=== PATIENT | female | born 2000 | race Caucasian/White ===

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

== ENCOUNTER 2021-05-18 15:51 | Emergency (ER) | payer MEDICAID, SELFPAY ==
[2021-05-18 16:00] VITALS: BP 128/64; PULSE 94; RESP 18; TEMP 36.9; O2SAT 99
--- NOTE | 2021-05-18 18:23 | ED.URI ---
HPI - URI/Sore Throat General Chief Complaint: Upper Respiratory Infection Stated Complaint: fever cough runny nose Source: patient and RN notes reviewed History of Present Illness HPI Narrative: This is a 20-year-old female who presented to urgent care with complaints of headache, productive cough with white clear sputum, sore throat, postnasal drip, decreased appetite and fatigue with nausea and fever. Patient notes that she took Tylenol at home and that she had a low-grade fever of 99.9. The patient denies SOB, CP, palpitation, extremity numbness, lightheadedness, dizziness, constipation, diarrhea, chills, or fever. Related Data Allergies Allergy/AdvReac Type Severity Reaction Status Date / Time acetaminophen AdvReac Mild Other Verified 05/18/21 17:33 aspirin AdvReac Mild Other Verified 05/18/21 17:33 Review of Systems Review of Systems: A 14 organ system Review of Systems was performed and pertinent positives included in the HPI, otherwise remaining ROS is negative. [facility] Surgical History Surgical History Hx of tonsillectomy Family History Family History Grandparent Diabetes mellitus, Onset Age: 50 Cerebrovascular accident, Onset Age: 50 Father Family history of migraine headaches Multiple sclerosis Hypertension Social History Social History Smoking status: Never smoker Alcohol intake: never Exam Narrative: GENERAL: This is a well-nourished, well-developed patient, in no apparent distress. HEAD: normocephalic, atraumatic. EYES: PERRL. Sclera clear/white. Vision is grossly intact. EARS: External ears normal, auditory canals clear and without drainage, TMs normal without perforation. Hearing grossly intact. NOSE: External nose normal with no obvious nasal discharge, nares without redness, no rhinorrhea. THROAT: Mucous membranes moist, posterior pharynx clear. NECK: Neck supple, non-tender without lymphadenopathy, masses or thyromegaly. CARDIOVASCULAR: Regular rate and rhythm without murmurs, gallops, or rubs. RESPIRATORY: Clear to auscultation. Breath sounds equal bilaterally. No wheezes, rales, or rhonchi. GASTROINTESTINAL: Abdomen soft, non-tender, nondistended. Bowel sounds are active. No hepato-splenomegaly, or palpable masses. No guarding. SKIN: warm, intact with no suspicious lesions or rash, good texture and turgor. NEURO: awake, alert, and oriented to person, place and time. There were no obvious focal neurologic abnormalities. Steady gait EXTREMITIES: Normal range of motion. No edema. No calf tenderness. Negative Homans sign bilaterally. BACK: Nontender without deformity or crepitance. No flank tenderness. Course Course Emergency Course: Patient will be given Zofran along with Flonase Claritin and Tessalon Perles. Treated for viral infection Vital Signs Vital signs: Vital Signs Temperature 98.5 F 05/18/21 16:00 Pulse Rate 94 05/18/21 16:00 Respiratory Rate 18 05/18/21 16:00 Blood Pressure 128/64 05/18/21 16:00 Pulse Oximetry 99 05/18/21 16:00 Temperature 98.5 F 05/18/21 16:00 Pulse Rate 94 05/18/21 16:00 Respiratory Rate 18 05/18/21 16:00 Blood Pressure 128/64 05/18/21 16:00 Pulse Oximetry 99 05/18/21 16:00 MDM - URI/Sore Throat Differential Diagnosis Differential diagnosis: Likely upper respiratory infection, sinusitis, viral infection, influenza and pharyngitis Lab Data Labs: Influenza A Screen Negative Reference Range: Negative Influenza B Screen Negative Reference Range: Negative Discharge Plan Discharge Clinical Impression: Viral infection Patient Disposition: Home, Self-Care Condition: Stable Instructions: Antibiotic Form
== END 2021-05-18 18:35 | disposition home or self-care (01) ==
PROVIDERS: Emergency Provider Nurse Practitioner; PCP Family Medicine
DX: B34.9 Viral infection, unspecified (principal); Z20.822 Contact with and (suspected) exposure to COVID-19
CPT/HCPCS: 87804; 99213; G0463

== ENCOUNTER 2022-03-27 11:51 | Emergency (ER) | payer OTHER, MEDICAID, SELFPAY ==
--- NOTE | ~2022-03-27 | XR_ITS ---
XR finger 1st RT min 2V DATE: 03/27/2022 12:34 INDICATION: Slammed thumb in mental door TECHNIQUE: 3 views COMPARISON: None FINDINGS: No fracture or dislocation, periosteal reaction or bone destruction. No radiopaque soft tis solo foreign body or subcutaneous emphysema. Joint spaces are preserved. IMPRESSION: Negative Reviewed, dictated and finalized at location A. IMPRESSION: Negative
[2022-03-27 12:00] VITALS: BP 117/69; PULSE 67; RESP 14; TEMP 36.9; O2SAT 100
--- NOTE | 2022-03-27 12:27 | ED.GENADULT ---
HPI - General Adult General Chief complaint: Extremity Injury, Upper Stated complaint: Right Thumb Injury Source: patient Mode of arrival: ambulatory Limitations: no limitations History of Present Illness HPI narrative: Patient presents for evaluation of right thumb pain. She works at [employer] and got her hand slammed in a metal door while working today. She reports 6/10 pain at rest and 8/10 pain with palpation of the affected area. No loss of range of motion. No paresthesias. She is right-hand dominant. No additional complaints or concerns. Related Data Allergies Allergy/AdvReac Type Severity Reaction Status Date / Time acetaminophen AdvReac Mild Other Verified 03/27/22 12:29 aspirin AdvReac Mild Other Verified 03/27/22 12:29 Review of Systems Review of Systems: CONSTITUTIONAL: Denies fever, chills, or sweats. EYES: Denies visual changes, redness, or discharge. ENT: Denies rhinorrhea, congestion, sore throat, or otalgia. CARDIOVASCULAR: Denies chest pain, palpitations, or edema. RESPIRATORY: Denies cough or dyspnea. GASTROINTESTINAL: Denies abdominal pain, nausea, vomiting, or diarrhea. GENITOURINARY: Denies dysuria or hematuria. SKIN: Denies rash or itching. MUSCULOSKELETAL: Reports pain in the right thumb without loss of range of motion NEUROLOGIC: Denies headache, numbness, dizziness, or weakness. PSYCHIATRIC: Denies anxiety or depression. [facility] Past Medical History Medical History Anxiety Surgical History Surgical History Hx of tonsillectomy Family History Family History Grandparent Diabetes mellitus, Onset Age: 50 Cerebrovascular accident, Onset Age: 50 Father Family history of migraine headaches Multiple sclerosis Hypertension Social History Social History Smoking status: Never smoker Alcohol intake: never Substance use: never Additional occupation/education comments: Works in [employer] at [employer] Gender identity (if verbalized by the patient): Female Spiritual care concerns: No Exam Narrative: GENERAL: Well-appearing, well-nourished, and in no acute distress. HEAD: Normocephalic, atraumatic. EYES: PERRLA and EOMI. ENT: Nares clear, no rhinorrhea or epistaxis. Mucous membranes moist. Oropharynx without tonsillar hypertrophy exudate or other lesions. Bilateral TMs pearly talbert nonbulging NECK: Supple. No adenopathy or masses. No carotid bruits or JVD CHEST: Clear to auscultation. No respiratory distress. No wheezes rales or rhonchi HEART: Regular rate and rhythm. No murmur heard. Normal peripheral pulses. ABDOMEN: Soft, nontender, nondistended, normal active bowel sounds. EXTREMITIES: Tenderness over interphalangeal joint and distal phalanx of the right thumb SKIN: Warm, dry, no rash. There is a subungual hematoma noted to the right thumb NEURO: No focal deficits. Alert and oriented x3. PSYCH: Normal mood and affect. Course Course Emergency Course: This is a 21-year-old female that presented for evaluation of an injury to the right thumb. X-ray negative for fracture. She had evidence of upper subungual hematoma. This was drained per her request. She should follow up outpatient for further evaluation and treatment including the ER for worsening symptoms. Patient is in agreement with plan of care. Level of Care: Express Care Visit Vital Signs Vital signs: Vital Signs Temperature 36.9 C 03/27/22 12:00 Pulse Rate 67 03/27/22 12:00 Respiratory Rate 14 03/27/22 12:00 Blood Pressure 117/69 03/27/22 12:00 Pulse Oximetry 100 03/27/22 12:00 Oxygen Delivery Room Air 03/27/22 12:00 Temperature 36.9 C 03/27/22 12:00 Pulse Rate 67 03/27/22 12:00 Respiratory Rate 14 03/27/22 12:00 Blood Pressure 1
== END 2022-03-27 13:18 | disposition home or self-care (01) ==
PROVIDERS: Emergency Provider Nurse Practitioner; PCP Family Medicine
DX: S60.111A Contusion of right thumb with damage to nail, initial encounter (principal); X58.XXXA Exposure to other specified factors, initial encounter; Y99.0 Civilian activity done for income or pay; F41.9 Anxiety disorder, unspecified
CPT/HCPCS: 11740; 73140; 99213; G0463

== ENCOUNTER 2023-01-07 18:40 | Emergency (ER) | payer BC, SELFPAY ==
[2023-01-07 18:45] VITALS: BP 119/58; PULSE 83; RESP 18; TEMP 36.8; O2SAT 100
[2023-01-07 18:56] VITALS: BP 119/58; PULSE 83; RESP 18; TEMP 36.8; O2SAT 100
--- NOTE | 2023-01-07 18:57 | ED.FEMALEGU ---
HPI - Female Genitourinary General Chief complaint: Urogenital-Female Stated complaint: Poss Uti Time Seen by Provider: 01/07/23 18:57 Source: patient and RN notes reviewed Mode of arrival: ambulatory Limitations: no limitations History of Present Illness HPI Narrative: 22-year-old female presents with concern for urinary tract infection. She reports 2 day history of dysuria, frequency, urgency, suprapubic pressure, abdominal discomfort she reports history of urinary tract infections. She reports when she voids it is small amounts and smells foul. She denies back pain, fever. Reports body aches and nausea. Patient took azo this afternoon MD elicited complaint: UTI Related Data Allergies Allergy/AdvReac Type Severity Reaction Status Date / Time acetaminophen AdvReac Mild Other Verified 01/07/23 18:56 aspirin AdvReac Mild Other Verified 01/07/23 18:56 Review of Systems Review of Systems: CONSTITUTIONAL: Denies malaise, chills, sweats, or fever. CARDIOVASCULAR: Denies chest pain, palpitations, or edema. RESPIRATORY: Denies cough or dyspnea. GASTROINTESTINAL: Denies abdominal pain, diarrhea. Reports nausea with 1 episode of vomiting GENITOURINARY: Reports dysuria, frequency, urgency, suprapubic pressure. Denies flank pain or hematuria. SKIN: Denies rash or itching. MUSCULOSKELETAL: Denies back pain. Reports myalgia. All systems reviewed & are unremarkable except as noted in HPI and below PMFSH Past Medical History Medical History Anxiety Surgical History Surgical History Hx of tonsillectomy Family History Family History Grandparent Diabetes mellitus, Onset Age: 50 Cerebrovascular accident, Onset Age: 50 Father Family history of migraine headaches Multiple sclerosis Hypertension Social History Social History Smoking status: Never smoker Alcohol intake: never Substance use: never Additional occupation/education comments: Works in [employer] at [employer] Gender identity (if verbalized by the patient): Female Spiritual care concerns: No Comments At time of signature, agree with nursing past medical, surgical, social and family history. There is no relevant family history pertinent to the presenting complaint Exam Narrative: GENERAL: Well-appearing, well-nourished, and in no acute distress. HEAD: Normocephalic. EYES: PERRLA, conjunctivae clear. NECK: Supple. No lymphadenopathy CHEST: Clear to auscultation. No respiratory distress. HEART: Regular rate and rhythm. ABDOMEN: Soft, suprapubic tenderness, nondistended, normal active bowel sounds, no palpable or pulsatile masses, no guarding. No CVA tenderness SKIN: Warm, dry, no rash. NEURO: Alert and oriented x3. PSYCH: Normal mood and affect Course Course Emergency Course: Patient is aware of diagnosis, understands and agrees to treatment plan. Anticipatory guidance given. Patient agrees to follow-up as directed and is aware of reasons to seek care at the emergency department. Portions of this record may have been created with voice recognition software Level of Care: Express Care Visit Vital Signs Vital signs: Vital Signs Temperature 98.3 F 01/07/23 18:45 Pulse Rate 83 01/07/23 18:45 Respiratory Rate 18 01/07/23 18:45 Blood Pressure 119/58 L 01/07/23 18:45 Pulse Oximetry 100 01/07/23 18:45 Oxygen Delivery Room Air 01/07/23 18:45 Temperature 98.3 F 01/07/23 18:56 Pulse Rate 83 01/07/23 18:56 Respiratory Rate 18 01/07/23 18:56 Blood Pressure 119/58 L 01/07/23 18:56 Pulse Oximetry 100 01/07/23 18:56 Oxygen Delivery Room Air 01/07/23 18:56 Reviewed. MDM - Female Genitourinary MDM Narrative Medical decision making narrative: Ex
== END 2023-01-07 19:14 | disposition home or self-care (01) ==
PROVIDERS: Emergency Provider Nurse Practitioner
DX: N39.0 Urinary tract infection, site not specified (principal); B96.20 Unspecified Escherichia coli [E. coli] as the cause of diseases classified elsewhere; F41.9 Anxiety disorder, unspecified
CPT/HCPCS: 81003; 87077; 87086; 87186; 99213; G0463

== ENCOUNTER 2023-04-25 13:39 | Outpatient (CLI) | payer OTHER, SELFPAY ==
[2023-04-25 19:27] LABS: Hematocrit 40.7 % (37.0-47.0); Hemoglobin 13.1 g/dL (12.0-15.0); Mean Corpuscular HGB Conc 32.2 g/dl (32-36); Mean Corpuscular Hemoglobin 30.5 pg (26-34); Mean Corpuscular Volume 94.9 fl (80-100); Mean Platelet Volume 9.1 fl (7.4-10.4); Platelet Count Result 329 k/mm3 (150-375); Red Blood Count 4.29 M/mm3 (4.2-5.4); Red Cell Distribution Width 13.2 % (11.5-14.5)
[2023-04-25 21:15] LABS: Alanine Aminotransferase 13 U/L (6-35); Albumin Level 4.7 g/dL (3.5-5.1); Alkaline Phosphatase 51 U/L (38-126); Anion Gap 10 mmol/L (8-16); Aspartate Amino Transferase 36 U/L (14-36); Bilirubin,Total 0.6 mg/dL (0.2-1.3); Blood Urea Nitrogen 14 mg/dL (7-17); Calcium 9.3 mg/dL (8.4-10.2); Carbon Dioxide 26 mmol/L (22-30); Chloride 103 mmol/L (98-107); Cholesterol 184 mg/dL (0-200); Estimated Glomerular Filt Rate > 60; Glucose 78 mg/dL (65-110); HDL Direct 57 mg/dL; Potassium 3.7 mmol/L (3.4-5.0); Sodium 139 mmol/L (137-145); Triglycerides 68 mg/dL (<150)
[2023-04-25 21:26] LABS: LDL Cholesterol Direct 104 mg/dL
[2023-04-25 21:45] LABS: Thyroid Stimulating Hormone 0.873 uIU/mL (0.465-4.680)
== END 2023-04-25 13:40 | disposition home or self-care (01) ==
LOC: ANHBWCLAB 13:41
PROVIDERS: PCP Family Medicine; Visit Provider Family Medicine
DX: Z00.00 Encounter for general adult medical examination without abnormal findings (principal); F41.1 Generalized anxiety disorder
CPT/HCPCS: 36415; 80053; 80061; 84443; 85027

== ENCOUNTER 2024-10-31 15:45 | Outpatient (CLI) | payer OTHER, SELFPAY ==
[2024-10-31 19:46] LABS: Hematocrit 42.1 % (37.0-47.0); Hemoglobin 13.4 g/dL (12.0-15.0); Mean Corpuscular HGB Conc 31.8 g/dl (32-36); Mean Corpuscular Hemoglobin 30.5 pg (26-34); Mean Corpuscular Volume 95.9 fl (80-100); Platelet Count Result 416 k/mm3 (150-375); Red Blood Count 4.39 M/mm3 (4.2-5.4); Red Cell Distribution Width 13.1 % (11.5-14.5); White Blood Count 8.9 K/mm3 (4.5-10.0)
[2024-10-31 20:57] LABS: Iron 59 ug/dL (37-170)
[2024-10-31 21:06] LABS: Alanine Aminotransferase 12 U/L (6-35); Albumin Level 4.4 g/dL (3.5-5.1); Alkaline Phosphatase 51 U/L (38-126); Anion Gap 9 mmol/L (4-12); Aspartate Amino Transferase 40 U/L (14-36); Bilirubin,Total 0.2 mg/dL (0.2-1.3); Blood Urea Nitrogen 10 mg/dL (7-17); Calcium 9.4 mg/dL (8.4-10.2); Carbon Dioxide 26 mmol/L (22-30); Chloride 105 mmol/L (98-107); Estimated Glomerular Filt Rate > 60; Glucose 100 mg/dL (65-110); Potassium 3.3 mmol/L (3.4-5.0); Sodium 140 mmol/L (137-145); Total Protein 7.5 g/dL (6.3-8.2)
[2024-10-31 21:09] LABS: Percent Iron Saturation 20 % (20-50)
[2024-10-31 21:16] LABS: Free T4 Free Thyroxine 1.06 ng/dL (0.78-2.19)
[2024-10-31 21:38] LABS: Thyroid Stimulating Hormone 0.821 uIU/mL (0.465-4.680)
[2024-10-31 22:17] LABS: Folic Acid 7.2 ng/mL (2.76->20)
[2024-11-03 22:59] LABS: Amphetamines NEGATIVE ng/mL (<500); Barbiturates NEGATIVE ng/mL (<300); Benzodiazepines NEGATIVE ng/mL (<100); Cocaine Metabolite NEGATIVE ng/mL (<150); Marijuana Metabolite >5000 ng/mL (<5); Marijuana Metabolite POSITIVE ng/mL (<20); Methadone Metabolite NEGATIVE ng/mL (<100); Opiates NEGATIVE ng/mL (<100); Oxidant NEGATIVE mcg/mL (<200); pH 6.4 (4.5-9.0)
== END 2024-10-31 15:46 | disposition home or self-care (01) ==
LOC: ANHBWCLAB 15:45
PROVIDERS: PCP Nurse Practitioner Adult Health; Visit Provider Nurse Practitioner Adult Health
DX: Z00.00 Encounter for general adult medical examination without abnormal findings (principal); R23.1 Pallor; F41.1 Generalized anxiety disorder
CPT/HCPCS: 36415; 80053; 80299; 82607; 82728; 82746; 83540; 83550; 84439; 84443; 85027

== ENCOUNTER 2024-11-07 14:28 | Outpatient (CLI) | payer OTHER, SELFPAY ==
[2024-11-07 19:19] LABS: Potassium 3.3 mmol/L (3.4-5.0)
== END 2024-11-07 14:29 | disposition home or self-care (01) ==
LOC: ANHBWCLAB 14:29
PROVIDERS: PCP Nurse Practitioner Adult Health; Visit Provider Nurse Practitioner Adult Health
DX: E87.6 Hypokalemia (principal)
CPT/HCPCS: 36415; 84132

== ENCOUNTER 2025-02-06 09:33 | Outpatient (CLI) | payer OTHER, SELFPAY ==
[2025-02-06 18:22] LABS: Hematocrit 45.6 % (37.0-47.0); Hemoglobin 14.5 g/dL (12.0-15.0); Mean Corpuscular HGB Conc 31.8 g/dl (32-36); Mean Corpuscular Hemoglobin 30.4 pg (26-34); Mean Corpuscular Volume 95.6 fl (80-100); Platelet Count Result 448 k/mm3 (150-375); Red Blood Count 4.77 M/mm3 (4.2-5.4); White Blood Count 8.2 K/mm3 (4.5-10.0)
[2025-02-06 18:45] LABS: Anion Gap 14 mmol/L (4-12); Blood Urea Nitrogen 15 mg/dL (7-17); Calcium 9.6 mg/dL (8.4-10.2); Carbon Dioxide 23 mmol/L (22-30); Chloride 100 mmol/L (98-107); Estimated Glomerular Filt Rate > 60; Glucose 89 mg/dL (65-110); Potassium 3.5 mmol/L (3.4-5.0); Sodium 137 mmol/L (137-145)
== END 2025-02-06 09:34 | disposition home or self-care (01) ==
LOC: ANHBWCLAB 09:35
PROVIDERS: PCP Nurse Practitioner Adult Health; Visit Provider Nurse Practitioner Adult Health
DX: Z01.83 Encounter for blood typing (principal); Z13.9 Encounter for screening, unspecified; E87.6 Hypokalemia
CPT/HCPCS: 36415; 80048; 85027; 86900; 86901